=== PATIENT | female | born 1975 | race Hispanic/Latino ===

== ENCOUNTER 2017-12-01 20:36 | Emergency (ER) | payer OTHER ==
[2017-12-01 20:42] VITALS: BMI 23.0
[2017-12-01 21:38] LABS: URINE BILIRUBIN NEGATIVE (NEGATIVE); URINE BLOOD LARGE (NEGATIVE); URINE GLUCOSE (UA) NEGATIVE (NEGATIVE); URINE LEUKOCYTE ESTERASE SMALL Leu/uL (NEGATIVE); URINE PROTEIN TRACE mg/dL (<30 mg/dL); URINE UROBILINOGEN 0.2 E.U./dL (<1 E.U./dL)
[2017-12-01 21:40] LABS: BASO # 0.02 K/mm3 (0.0-2.0); BASO % 0.4 % (0.0-3.0); EOS # 0.1 (0.0-0.7); GRAN # 2.79 (1.4-6.5); GRAN % 55.4 % (50.0-68.0); HEMOGLOBIN 11.1 g/dL (12.0-16.0); LYMPH # 1.7 (1.2-3.4); LYMPH % 33.7 % (22.0-35.0); MEAN CELL VOLUME 73.5 fl (80.0-105.0); MEAN CORPUSCULAR HEMOGLOBIN 21.6 pg (25.0-35.0); MEAN CORPUSCULAR HGB CONC 29.4 g/dl (31.0-37.0); MONO # 0.4 (0.1-0.6); MONO % 8.5 % (1.0-6.0); PLATELET COUNT 199 10^3/uL (120.0-450.0); RBC 5.14 10^6/uL (3.5-6.1); RED CELL DISTRIBUTION WIDTH 24.1 % (11.5-14.5)
--- NOTE | 2017-12-01 21:41 | ED PDOC ---
Arrival/HPI - General Chief Complaint: Chest Pain Time Seen by Provider: 12/01/17 20:41 Historian: Patient - History of Present Illness Narrative History of Present Illness (Text): 12/01/17 21:38 A 42 year old female, whose past medical history includes hypertension, presents to the emergency department complaining of intermittent chest discomfort since September. Patient reports she saw her PMD, who told patient she is having these symptoms because she is anemic and have been giving patient iron treatments. Patient notes while experiencing chest discomfort, she notes she also has been feeling dizziness. Her PMD refused to do EKG in PMD office. Patient reports she was at work today and felt chest discomfort and dizziness. Patient is anxious about chest pain and was worried about dizziness. History of and a couple of vaginal deliveries, episiotomy repair. Denies any history of Diabetes. Denies any drug use. Patient denies any other complaints at this time. Time/Duration: > month Symptom Onset: Sudden Symptom Course: Unchanged Activities at Onset: Rest Context: Home Past Medical History - Provider Review Nursing Documentation Reviewed: Yes - Infectious Disease Hx of Infectious Diseases: None - Cardiac Hx Hypertension: Yes - Pulmonary Hx Respiratory Disorders: No - Neurological Hx Neurological Disorder: No - HEENT Hx HEENT Disorder: No - Renal Hx Renal Disorder: No - Endocrine/Metabolic Hx Endocrine Disorders: No - Hematological/Oncological Hx Blood Disorders: No - Integumentary Hx Dermatological Disorder: No - Musculoskeletal/Rheumatological Hx Musculoskeletal Disorders: No - Gastrointestinal Hx Gastrointestinal Disorders: No - Genitourinary/Gynecological Hx Genitourinary Disorders: No - Psychiatric Hx Psychophysiologic Disorder: No Hx Substance Use: No - Surgical History Hx Section: Yes Other/Comment: ectopic - Anesthesia Hx Anesthesia: Yes Hx Anesthesia Reactions: No Hx Malignant Hyperthermia: No Family/Social History - Physician Review Nursing Documentation Reviewed: Yes Family/Social History: No Known Family HX Smoking Status: Never Smoked Hx Alcohol Use: No Hx Substance Use: No Allergies/Home Meds Allergies/Adverse Reactions: Allergies No Known Allergies Allergy (Verified 01/03/16 00:18) Home Medications: Home Meds Medication Instructions Recorded Confirmed Estradiol [Estradiol] 1 mg PO TID 01/03/16 12/01/17 Metoprolol Succinate [Toprol XL] 50 mg PO DAILY 01/03/16 12/01/17 amLODIPine [Norvasc] 5 mg PO DAILY 01/03/16 12/01/17 Review of Systems - Physician Review All systems were reviewed & negative as marked: Yes - Review of Systems Constitutional: absent: Fevers Cardiovascular: Chest Pain (discomfort) Neurological: Dizziness Physical Exam Vital Signs Reviewed: Yes Appearance: Positive for: Well-Appearing, Non-Toxic, Comfortable Pain Distress: None Mental Status: Positive for: Alert and Oriented X 3 - Systems Exam Head: Present: Atraumatic, Normocephalic Pupils: Present: PERRL Extroacular Muscles: Present: EOMI Conjunctiva: Present: Normal Mouth: Present: Moist Mucous Membranes Neck: Present: Normal Range of Motion Respiratory/Chest: Present: Clear to Auscultation, Good Air Exchange. No: Respiratory Distress, Accessory Muscle Use Cardiovascular: Present: Regular Rate and Rhythm, Normal S1, S2. No: Murmurs Abdomen: Present: Normal Bowel Sounds. No: Tenderness, Distention, Peritoneal Signs Back: Present: Normal Inspection Upper Extremity: Present: Normal Inspection. No: Cyanosis, Edema Lower Extremity: Present: Normal Inspection. No: Edema Neurological: Present: GCS=15, CN II-XII Intact, Speech Normal Skin: Present: Warm, Dry, Normal Color. No: Rashes Psychiatric: Present: Alert, Oriented x 3, Normal Insight, Normal Concentration Medical Decision Making ED Course and Treatment: 12/01/17 21:37 Impression: A 42 year old female with dizziness and chest discomfort. Plan: -- EKG -- chest xray -- labs -- Urinalysis -- Aspirin -- Reassess and disposition Prior Visits: Notes and results from previous visits were reviewed. Patient was last seen in the emergency department on 10/22/16 for evaluation of intermittent lower abdominal pain. Progress Notes: EKG: Ordered, reviewed, and independently interpreted the EKG. Rate : 106 BPM Rhythm : sinus tachycardia Interpretation : normal intervals, normal axis Comparison : No previous EKG for comparison. 12/02/17 01:00 chest xray- No active disease, as read by me. 12/02/17 01:oo On re-evaluation, patient feels better and is in no acute distress. I have discussed the results and plan with the patient, who expresses understanding. Patient in agreement with plan to be discharged home. Patient is stable for discharge. Patient was instructed to follow up with physician or return if symptoms worsen or new concerning symptoms arise. - Lab Interpretations Lab Results: 12/01/17 21:10 12/01/17 21:10 Lab Results 12/01/17 23:30: Blood Type Confirm UNKNOWN 12/01/17 21:10: Sodium 143, Potassium 3.4 L, Chloride 105, Carbon Dioxide 27, Anion Gap 13, BUN 10, Creatinine 0.7, Est GFR ( Amer) > 60, Est GFR (Non- Af Amer) > 60, Random Glucose 90, Calcium 9.8, Total Bilirubin 0.2, AST 28, ALT 32, Alkaline Phosphatase 57, Lactate Dehydrogenase 419, Total Creatine Kinase 86 , Troponin I < 0.01, Total Protein 7.6, Albumin 4.2, Globulin 3.4, Albumin/ Globulin Ratio 1.2 12/01/17 21:10: PT 11.8, INR 1.03, D-Dimer, Quantitative 205 12/01/17 21:10: WBC 5.0 D, RBC 5.14, Hgb 11.1 L, Hct 37.8, MCV 73.5 L, MCH 21.6 L, MCHC 29.4 L, RDW 24.1 H, Plt Count 199, Gran % 55.4, Lymph % (Auto) 33.7 , [place] % (Auto) 8.5 H, Eos % (Auto) 2.0, Baso % (Auto) 0.4, Gran # 2.79, Lymph # (Auto) 1.7, [place] # (Auto) 0.4, Eos # (Auto) 0.1, Baso # (Auto) 0.02 12/01/17 21:00: Blood Type UNKNOWN, Antibody Screen Negative, BBK History Checked No verified bt 12/01/17 20:56: Urine Color Light red, Urine Appearance Cloudy, Urine pH 7.0, Ur Specific [place] <= 1.005, Urine Protein Trace H, Urine Glucose (UA) Negative , Urine Ketones Negative, Urine Blood Large H, Urine Nitrate Negative, Urine Bilirubin Negative, Urine Urobilinogen 0.2, Ur Leukocyte Esterase Small H, Urine RBC 25 - 30, Urine WBC 2 - 5, Ur Epithelial Cells 1 - 3, Urine Bacteria Few I have reviewed the lab results: Yes - RAD Interpretation Radiology Orders: 12/01/17 20:45 CXR [CHEST PORTABLE] [RAD] Stat - EKG Interpretation Interpreted by ED Physician: Yes Type: 12 lead EKG - Medication Orders Current Medication Orders: Discontinued Medications Aspirin (Aspirin Chewable) 324 mg PO STAT STA Stop: 12/01/17 20:49 Last Admin: 12/01/17 20:56 Dose: 324 mg - Scribe Statement The provider has reviewed the documentation as recorded by the Allan Davis Provider Scribe Attestation: All medical record entries made by the Scribe were at my direction and personally dictated by me. I have reviewed the chart and agree that the record accurately reflects my personal performance of the history, physical exam, medical decision making, and the department course for this patient. I have also personally directed, reviewed, and agree with the discharge instructions and disposition. Disposition/Present on Arrival - Present on Arrival Any Indicators Present on Arrival: No History of DVT/PE: No History of Uncontrolled Diabetes: No Urinary Catheter: No History of Decub. Ulcer: No History Surgical Site Infection Following: None - Disposition Have Diagnosis and Disposition been Completed?: Yes Diagnosis: Atypical chest pain Disposition: HOME/ ROUTINE Disposition Time: 01:00 Patient Plan: Discharge Condition: GOOD Discharge Instructions (ExitCare): Chest Pain (ED) Additional Instructions: Jamere- Take the copies of your labs and your EKG to your doctor. Return to us if worse or new symptoms occur. Vinh- Dr. Sonu Simpson Referrals: Nuris Price, [Primary Care Provider] - Follow up with primary Forms: [employer] system (Greenlandic)
[2017-12-01 21:42] LABS: ALB/GLOB RATIO 1.2 (1.1-1.8); ALBUMIN 4.2 g/dL (3.0-4.8); ALT/SGPT 32 U/L (7-56); AST/SGOT 28 U/L (14-36); BLOOD UREA NITROGEN 10 mg/dL (7-21); CALCIUM 9.8 mg/dL (8.4-10.5); GFR AFRICAN-AMERICAN > 60; GFR NON-AFRICAN AMERICAN > 60
[2017-12-01 21:53] LABS: TROPONIN I < 0.01 ng/mL
[2017-12-01 21:56] LABS: INR 1.03 (0.93-1.08); PROTHROMBIN TIME 11.8 SECONDS (9.4-12.5)
[2017-12-01 21:56] LABS: URINE COLOR LIGHT RED (YELLOW)
[2017-12-01 21:57] LABS: URINE APPEARANCE CLOUDY (CLEAR)
[2017-12-01 21:59] LABS: URINE RBC 25 - 30 /hpf (0-2)
[2017-12-01 22:00] LABS: URINE BACTERIA FEW (NEG)
--- NOTE | 2017-12-02 08:22 | RAD ---
HISTORY: Chest Pain COMPARISON: No prior. FINDINGS: LUNGS: No active pulmonary disease. PLEURA: No significant pleural effusion identified, no pneumothorax apparent. CARDIOVASCULAR: Normal. OSSEOUS STRUCTURES: No significant abnormalities. VISUALIZED UPPER ABDOMEN: Normal. OTHER FINDINGS: None. IMPRESSION: No active disease.
--- NOTE | 2017-12-02 11:24 | CARD ---
APPROVED REPORT EKG Measurement Heart [id number] <Conclusion> Sinus tachycardia NSSTW changes Prolonged QTc No change
== END 2017-12-02 01:08 | disposition home or self-care (01) ==
LOC: ED 20:36
DX: R07.89 Other chest pain (principal); I10 Essential (primary) hypertension

== ENCOUNTER 2018-03-16 16:42 | Emergency (ER) | payer OTHER ==
--- NOTE | 2018-03-16 16:53 | ED PDOC ---
Arrival/HPI - General Time Seen by Provider: 03/16/18 16:51 Historian: Patient - History of Present Illness Narrative History of Present Illness (Text): 03/16/18 16:51 42yo female with past medical history of hypertension who present with complaint of left lower leg/ankle pain s/p trauma earlier this morning. States a metal object she was pulling, hit her left lower leg at 0300am this morning. States she has been applying ice all day and took Tylenol earlier with mild relieve. Denies any other complaint. Past Medical History - Provider Review Nursing Documentation Reviewed: Yes - Infectious Disease Hx of Infectious Diseases: None - Cardiac Hx Hypertension: Yes - Pulmonary Hx Respiratory Disorders: No - Neurological Hx Neurological Disorder: No - HEENT Hx HEENT Disorder: No - Renal Hx Renal Disorder: No - Endocrine/Metabolic Hx Endocrine Disorders: No - Hematological/Oncological Hx Blood Disorders: No - Integumentary Hx Dermatological Disorder: No - Musculoskeletal/Rheumatological Hx Musculoskeletal Disorders: No - Gastrointestinal Hx Gastrointestinal Disorders: No - Genitourinary/Gynecological Hx Genitourinary Disorders: No - Psychiatric Hx Psychophysiologic Disorder: No Hx Substance Use: No - Surgical History Hx Section: Yes Other/Comment: ectopic - Anesthesia Hx Anesthesia: Yes Hx Anesthesia Reactions: No Hx Malignant Hyperthermia: No Family/Social History - Physician Review Nursing Documentation Reviewed: Yes Family/Social History: Unknown Family HX Smoking Status: Never Smoked Hx Alcohol Use: No Hx Substance Use: No Allergies/Home Meds Allergies/Adverse Reactions: Allergies No Known Allergies Allergy (Verified 01/03/16 00:18) Home Medications: Home Meds Medication Instructions Recorded Confirmed Estradiol [Estradiol] 1 mg PO TID 01/03/16 12/01/17 Metoprolol Succinate XL [Toprol XL] 50 mg PO DAILY 01/03/16 12/01/17 amLODIPine [Norvasc] 5 mg PO DAILY 01/03/16 12/01/17 Review of Systems - Physician Review All systems were reviewed & negative as marked: Yes - Review of Systems Constitutional: Normal Eyes: Normal ENT: Normal Respiratory: Normal Cardiovascular: Normal Gastrointestinal: Normal Genitourinary Female: Normal Musculoskeletal: Arthralgias (LEft lower leg/ankle) Skin: Normal Neurological: Normal Endocrine: Normal Hemo/Lymphatic: Normal Psychiatric: Normal Physical Exam Vital Signs Reviewed: Yes Vital Signs Temp Pulse Resp BP Pulse Ox 03/16/18 16:56 98.1 F 101 H 16 99 03/16/18 16:52 98.6 F 94 H 18 152/95 H 100 Temperature: Afebrile Blood Pressure: Normal Pulse: Regular Respiratory Rate: Normal Appearance: Positive for: Well-Appearing, Non-Toxic, Comfortable Pain Distress: None Mental Status: Positive for: Alert and Oriented X 3 - Systems Exam Head: Present: Atraumatic, Normocephalic Pupils: Present: PERRL Extroacular Muscles: Present: EOMI Conjunctiva: Present: Normal Mouth: Present: Moist Mucous Membranes Neck: Present: Normal Range of Motion Respiratory/Chest: Present: Clear to Auscultation, Good Air Exchange. No: Respiratory Distress, Accessory Muscle Use Cardiovascular: Present: Regular Rate and Rhythm, Normal S1, S2. No: Murmurs Abdomen: No: Tenderness, Distention, Peritoneal Signs Back: Present: Normal Inspection Upper Extremity: Present: Normal Inspection. No: Cyanosis, Edema Lower Extremity: Present: NORMAL PULSES, Normal ROM, Tenderness (LEft lateral lower leg and ankle), Neurovascularly Intact. No: Edema, Swelling, Erythema, Deformity, Temperature Abnormalties Neurological: Present: GCS=15, CN II-XII Intact, Speech Normal Skin: Present: Warm, Dry, Normal Color. No: Rashes Psychiatric: Present: Alert, Oriented x 3, Normal Insight, Normal Concentration Medical Decision Making ED Course and Treatment: 03/16/18 19:10 Left ankle/tib fib xray - No acute fracture Daryl wrap applied and cane given Result DW the pt. Advised to RICE ankle. Referred to ortho - RAD Interpretation Radiology Orders: 03/16/18 16:54 ANKLE LEFT 3 VIEWS ROUTINE [RAD] Stat TIBIA FIBULA LEFT [RAD] Stat - Medication Orders Current Medication Orders: Discontinued Medications Ketorolac Tromethamine (Toradol) 60 mg IM STAT STA Stop: 03/16/18 16:54 Last Admin: 03/16/18 17:37 Dose: 60 mg [facility] Pain Assessment Document 03/16/18 17:37 OCS (Rec: 03/16/18 17:38 OCS [id number]) Pain Reassessment Is this a pain reassessment? No Sleep Is patient sleeping during reassessment? No Presence of Pain Presence of Pain Yes Pain Scale Used Pain Scale Used Numeric Location Left, Right or Bilateral Left Upper or Lower Lower Pain Location Body Site Leg Description Description Constant Intensity of Pain at present 8 Aggravating Factors ADL's IM Administration Charges Document 03/16/18 17:37 OCS (Rec: 03/16/18 17:38 OCS [id number]) Injection Site MAR Injection Site Left Deltoid Charges for Administration # of IM Administrations 1 Disposition/Present on Arrival - Present on Arrival Any Indicators Present on Arrival: No History of DVT/PE: No History of Uncontrolled Diabetes: No Urinary Catheter: No History Surgical Site Infection Following: None - Disposition Have Diagnosis and Disposition been Completed?: Yes Diagnosis: Ankle sprain Disposition: HOME/ ROUTINE Disposition Time: 18:45 Patient Plan: Discharge Patient Problems: Current Active Problems Problem Status Onset Ankle sprain Acute Condition: STABLE Discharge Instructions (ExitCare): Ankle Sprain Additional Instructions: Rest, Ice, compress and elevated ankle follow up with your doctor/Orthopedist Return to ED for any new symptoms Prescriptions: Ibuprofen [Motrin Tab] 600 mg PO Q6 #20 tab Referrals: Shree Desai MD [Primary Care Provider] - Follow up with primary Harjit Castellon MD [Staff Provider] - Follow up with primary Forms: WORK NOTE
[2018-03-16 16:54] VITALS: BMI 23.3
[2018-03-16 17:02] VITALS: O2SAT 99
--- NOTE | 2018-03-16 18:30 | RAD ---
PROCEDURE: Radiographs of the left tibia and fibula. HISTORY: leg pain s/p trauma COMPARISON: None available. TECHNIQUE: Frontal and lateral views obtained. FINDINGS: BONES: Bone alignment and mineralization are normal. There is no acute displaced fracture or bone destruction. JOINT SPACES: Unremarkable. OTHER FINDINGS: None. IMPRESSION: No acute fracture.
--- NOTE | 2018-03-16 18:31 | RAD ---
PROCEDURE: Left Ankle Radiographs. HISTORY: ankle pain s/p trauma COMPARISON: None FINDINGS: BONES: Bone alignment and mineralization are normal. There is no acute displaced fracture or bone destruction. JOINTS: Normal. Ankle mortise maintained. Talar dome intact SOFT TISSUES: Normal. OTHER FINDINGS: None. IMPRESSION: No acute fracture or dislocation.
[2018-03-16 19:35] VITALS: BP 140/79; PULSE 86; RESP 18; TEMP 98.6
== END 2018-03-16 18:55 | disposition home or self-care (01) ==
LOC: ED 16:42
DX: S93.402A Sprain of unspecified ligament of left ankle, initial encounter (principal); W22.8XXA Striking against or struck by other objects, initial encounter
CPT/HCPCS: 73590; 73610; 96372; 99283; J1885